=== PATIENT | male | born 1990 | race African-American/Black ===

== ENCOUNTER 2020-02-20 18:51 | Emergency (ER) | payer MEDICAID ==
[~2020-02-20] VITALS: Ht 180.3 cm; Wt 94.0 kg
[2020-02-20] MEDS ORDERED: DEXAMETHASONE 10 MG/ML VIAL IV ONE (19:30)
[2020-02-20] MEDS ORDERED: FAMOTIDINE 20MG/2ML VIAL IV ONE (19:30)
[2020-02-20 19:59] LABS: BASOPHILS % 0.6 % (0.0-2.0); HEMATOCRIT. 44.6 % (42.0-52.0); HEMOGLOBIN. 15.4 g/dL (14.0-18.0); LYMPHOCYTES % 37.5 % (20.0-50.0); MEAN CORPUSCULAR HEMOGLOBIN 29.6 pg (28.0-32.0); MEAN CORPUSCULAR VOLUME 85.8 fL (80.0-94.0); MEAN PLATELET VOLUME 11.3 fl (7.4-10.4); MONOCYTES % 14.9 % (2.0-8.0); PLATELET 148 x1000/uL (130-400); RED CELL DISTRIBUTION WIDTH 13.7 % (11.6-14.6)
[2020-02-20 20:13] LABS: CHLORIDE 104 mEq/L (98-107)
[2020-02-20 21:03] VITALS: BP 126/76
== END 2020-02-20 21:37 | disposition home or self-care (01) ==
LOC: ER 18:51
DX: T78.40XA Allergy, unspecified, initial encounter (principal); X58.XXXA Exposure to other specified factors, initial encounter
CPT/HCPCS: 36415; 71045; 80048; 85025; 96374; 96375; 99284; J1100; J3490